=== PATIENT | female | born 1975 | race Caucasian/White ===

== ENCOUNTER → 2016-05-17 | Outpatient (CLI) | payer OTHER, BC ==
--- NOTE | 2016-05-19 16:24 | CR ---
EXAM DATE: 05/17/16 PATIENT'S AGE: 40 Patient: ELGIN KELLY Facility: [place], [place] Site . Site : 1975 Study: XRay Extremity Left [id number] 2:00:30 PM Ordering Physician: Joseph Zamudio Final Report: HISTORY: Fall on 06 May 2016. Findings: Three views of the left elbow demonstrates normal bone mineralization. No joint effusion is seen. There is slight irregularity of the coronoid process of the ulna. No frances fracture line is seen. The radial head is intact. Impression: 1. Slight irregularity of the coronoid process of the ulna. This could represent an minimal impaction fracture although no joint effusion is seen. Recommend correlation with point tenderness. 2. The radial head appears intact. Dictated by Bianca Licea MD @ May 18 2016 2:35PM (Electronic Signature) Report Signed by Proxy and Original Signed Document filed in the Medical Record. MTDD
== END ==
LOC: MW.CHFP 13:30
PROVIDERS: ATTEND Physician Assistant
DX: S59.902A Unspecified injury of left elbow, initial encounter (principal)
CPT/HCPCS: 73080-26-LT; 73080-LT

== ENCOUNTER 2020-12-29 07:53 | Observation (INO) | payer BC ==
[~2020-12-29 07:53] MED LIST: Dexamethasone 4 MG/ML 5 ML MDV ONE; Dexmedetomidine 200 MCG/2 ML SDV ONE; Midazolam 1 MG/ML 2 ML SDV ONE; Propofol 200 MG/20 ML SDV ONE; Rocuronium Bromide 50 MG/5 ML Syringe ONE; Sodium Chloride 0.9% 20 ML ONE; fentaNYL 100 MCG/2 ML SDV ONE
[2020-12-29] MEDS ORDERED: Fluorescein 5 ML Vial ONE (08:14)
[2020-12-29] MEDS ORDERED: Methylene Blue 50 MG/10 ML Ampule ONE (08:14)
[2020-12-29] MEDS ORDERED: Bupivacaine 0.25% 10 ML SDV ONE ×2 (08:14→08:15)
--- NOTE | 2020-12-29 08:15 | PCM.PREANE ---
Preanesthetic Assessment - Procedure Proposed Procedure: Lap assisted Vaginal Hysterectomy, Sky Salpingectomy, Cysto - Anesthesia/Transfusion/Family Hx Anesthesia History: Prior Anesthesia Without Reaction Family History of Anesthesia Reaction: No Transfusion History: No Prior Transfusion(s) - Review of Systems General: No Symptoms Pulmonary: No Symptoms Cardiovascular: No Symptoms Gastrointestinal: No Symptoms Neurological: No Symptoms Other: Reports: None - Physical Assessment NPO Status Date: 12/28/20 NPO Status Time: 19:30 Height: 5 ft 7 in Weight: 62.596 kg ASA Class: 2 Mental Status: Alert & Oriented x3 Airway Class: Mallampati = 3 Dentition: Reports: Normal Dentition Thyro-Mental Finger Breadths: 3 Mouth Opening Finger Breadths: 3 ROM/Head Extension: Full Lungs: Clear to Auscultation, Normal Respiratory Effort Cardiovascular: Regular Rate, Regular Rhythm - Allergies Allergies/Adverse Reactions: Allergies Allergy/AdvReac Type Severity Reaction Status Date / Time No Known Allergies Allergy Verified 12/23/20 08:36 - Acknowledgements Anesthesia Type Planned: General Anesthesia Pt an Appropriate Candidate for the Planned Anesthesia: Yes Alternatives and Risks of Anesthesia Discussed w Pt/Guardian: Yes Pt/Guardian Understands and Agrees with Anesthesia Plan: Yes PreAnesthesia Questionnaire - Past Health History Medical/Surgical History: Denies Medical/Surgical History HEENT History: Reports: Other (See Below) Other HEENT History: wears glasses RISK ASSESSMENT ANALYST History: Reports: , Spontaneous Musculoskeletal History: Reports: Fracture Other Musculoskeletal History: hx fx arm as a child Psychiatric History: Reports: Anxiety Hematologic History: Reports: Anemia - Past Surgical History Head Surgeries/Procedures: Reports: None HEENT Surgical History: Reports: Oral Surgery, Other (See Below) Other HEENT Surgeries/Procedures: wisdom teeth extraction Female Surgical History: Reports: D&C - SUBSTANCE USE Tobacco Use Status *Q: Never Tobacco User Days Per Week of Alcohol Use: 7 Number of Drinks Per Day: 2 Total Drinks Per Week: 14 Recreational Drug Use History: No - HOME MEDS Home Medications: Home Meds Teddy/D3/Mag11/Zinc/Grievance Coordinator/Jacob/Bor [Caltrate 600+D Plus Tablet] 1 tab PO DAILY 12/23/20 [History] Glucosam/Chond/Collagen/Hyalur [Glucosamine Chondroitin] 1 tab PO DAILY 12/23/20 [History] Multivit-Min/Iron/Folic Acid/K [One Daily Women's Multivitamin] 1 tab PO DAILY 12/23/20 [History] Selenium 1 tab PO DAILY 12/23/20 [History] norgestimate-ethinyl estradioL [Estarylla 0.25-0.035 mg Tablet] 1 tab PO DAILY 12/23/20 [History] - CURRENT (IN HOUSE) MEDS Current Meds: Current Medications Lactated Ringer's (Ringers, Lactated) 1,000 mls @ 125 mls/hr IV ASDIRECTED SMA Discontinued Medications Dexamethasone (Dexamethasone 4 Mg/Ml 5 Ml Mdv) Confirm Administered Dose 20 mg .ROUTE .STK-MED ONE Stop: 12/29/20 07:28 Dexmedetomidine HCl (Dexmedetomidine 200 Mcg/2 Ml Sdv) Confirm Administered Dose 200 mcg .ROUTE .STK-MED ONE Stop: 12/29/20 07:28 Fentanyl (Fentanyl 100 Mcg/2 Ml Sdv) Confirm Administered Dose 100 mcg .ROUTE .STK-MED ONE Stop: 12/29/20 07:28 Sodium Chloride (Normal Saline) Confirm Administered Dose 20 mls @ as directed .ROUTE .STK-MED ONE Stop: 12/29/20 07:32 Lidocaine HCl (Lidocaine 1% 5 Ml Sdv) Confirm Administered Dose 5 ml .ROUTE .STK-MED ONE Stop: 12/29/20 07:28 Midazolam HCl (Midazolam 1 Mg/Ml 2 Ml Sdv) Confirm Administered Dose 2 mg .ROUTE .STK-MED ONE Stop: 12/29/20 07:28 Propofol (Propofol 200 Mg/20 Ml Sdv) Confirm Administered Dose 200 mg .ROUTE .STK-MED ONE Stop: 12/29/20 07:28 Rocuronium Johnston (Rocuronium Johnston 50 Mg/5 Ml Syringe) Confirm Administered Dose 50 mg .ROUTE .STK-MED ONE Stop: 12/29/20 07:28
[2020-12-29] MEDS: Lactated Ringers 1,000 ML IV SCH ×2 (08:27→12:18)
[2020-12-29] MEDS ORDERED: Metoclopramide 10 MG/2 ML SDV IVPUSH PRN (09:04)
[2020-12-29] MEDS ORDERED: Ondansetron 4 MG/2 ML SDV IVPUSH PRN ×2 (09:04→10:38)
[2020-12-29] MEDS ORDERED: HYDROmorphone 1 MG/ML Syringe IVPUSH PRN (09:04)
[2020-12-29] MEDS ORDERED: Morphine 2 MG/ML SYRINGE IVPUSH PRN (09:04)
[2020-12-29] MEDS ORDERED: Naloxone 0.4 MG/ML SDV IVPUSH PRN (09:04)
[2020-12-29] MEDS ORDERED: Albuterol 0.083% 2.5 MG/3 ML Neb Soln NEB PRN (09:04)
[2020-12-29 09:05] LABS: CARBON DIOXIDE,CO2 25.2 mmol/L (21.0-32.0); POTASSIUM,K 3.8 mmol/L (3.5-5.1)
[2020-12-29] MEDS ORDERED: Rocuronium Bromide 50 MG/5 ML Syringe ONE (09:58)
[2020-12-29] MEDS ORDERED: ePHEDrine 50 MG/ML SDV ONE (10:03)
[2020-12-29] MEDS ORDERED: Furosemide 40 MG/4 ML VIAL ONE (10:12)
[2020-12-29] MEDS ORDERED: Ketorolac 30 MG/ML SDV ONE (10:17)
[2020-12-29] MEDS ORDERED: Sugammadex Sodium 200 MG/2 ML VIAL ONE (10:17)
[2020-12-29] MEDS ORDERED: Ondansetron 4 MG/2 ML SDV ONE (10:17)
[2020-12-29] MEDS ORDERED: Promethazine 25 MG/ML SDV IM PRN (10:38)
[2020-12-29] MEDS ORDERED: Morphine 4 MG/ML Syringe IVPUSH PRN (10:38)
[2020-12-29] MEDS ORDERED: Ibuprofen 800 MG Tab PO PRN (10:38)
[2020-12-29] MEDS ORDERED: Acetaminophen/oxyCODONE 325-5 MG Tab PO PRN ×2 (10:38)
[2020-12-29] MEDS ORDERED: Ketorolac 30 MG/ML SDV IVPUSH ONE (10:38)
--- NOTE | 2020-12-29 10:45 | PCM.OPNOTE ---
- General Post-Op/Procedure Note Date of Surgery/Procedure: 12/29/20 Operative Procedure(s): Laparoscopic-assisted vaginal hysterectomy, bilateral salpingectomy, cystoscopy Findings: Enlarged uterus, 10-week size, sound to 10cm, with multiple intramural fibroids Normal-appearing ovaries and fallopian tubes Endometriosis in posterior cul-de-sac Normal ureters, bilateral ureteral efflux Pre Op Diagnosis: 45yo with heavy menstrual bleeding. Uterine leiomyoma Post-Op Diagnosis: 45yo with heavy menstrual bleeding. Uterine leiomyoma. Endometriosis Anesthesia Technique: General ET Tube Primary Surgeon: Sveta Burns Electronic Masking System Operator: Chen Neff Pathology: Uterus, cervix, bilateral fallopian tubes Fluid Replacement, Intraop: 600 Output, Urine Amount: 100 EBL in mLs: 100 Complications: None Condition: Good Free Text/Narrative:: 2g Ancef IV given for antibiotic prophylaxis
--- NOTE | 2020-12-29 10:48 | PCM.POSTAN ---
POST ANESTHESIA ASSESSMENT - MENTAL STATUS Mental Status: Alert, Oriented - VITAL SIGNS Vital Signs: Last Vital Signs Temp 98.2 F 12/29/20 10:42 Pulse 67 12/29/20 10:42 Resp 23 H 12/29/20 10:42 BP 97/57 L 12/29/20 10:42 Pulse Ox 100 12/29/20 10:42 - RESPIRATORY Respiratory Status: Respiratory Rate WNL, Airway Patent, O2 Saturation Stable - CARDIOVASCULAR CV Status: Pulse Rate WNL, Blood Pressure Stable - GASTROINTESTINAL GI Status: No Symptoms - PAIN Pain Score: 6 - POST OP HYDRATION Hydration Status: Adequate & Stable
[2020-12-29] MEDS: fentaNYL 100 MCG/2 ML SDV IVPUSH PRN ×2 (11:02→11:09)
--- NOTE | 2020-12-29 11:25 | PCM48HPAN ---
Post Anesthesia Note - EVALUATION WITHIN 48HRS OF ANESTHETIC Vital Signs in Normal Range: Yes Patient Participated in Evaluation: Yes Respiratory Function Stable: Yes Airway Patent: Yes Cardiovascular Function Stable: Yes Hydration Status Stable: Yes Pain Control Satisfactory: Yes Nausea and Vomiting Control Satisfactory: Yes Mental Status Recovered: Yes Vital Signs: Last Vital Signs Temp 98.2 F 12/29/20 10:42 Pulse 70 12/29/20 11:19 Resp 12 12/29/20 11:19 BP 100/56 L 12/29/20 11:19 Pulse Ox 100 12/29/20 11:19 - COMMENTS/OBSERVATIONS Free Text/Narrative:: Pt doing well post-op. VSS. No apparent anesthetic complications. Dr. Miguelangel Colon
--- NOTE | 2020-12-29 12:30 | OR ---
SURGEON: Sveta Burns MD DATE OF PROCEDURE: 12/29/2020 PREOPERATIVE DIAGNOSES: 1. Heavy menstrual bleeding. 2. Uterine leiomyoma. POSTOPERATIVE DIAGNOSES: 1. Heavy menstrual bleeding. 2. Uterine leiomyoma. 3. Endometriosis. PROCEDURES: 1. Laparoscopic-assisted vaginal hysterectomy. 2. Bilateral salpingectomy. 3. Cystoscopy. PRIMARY SURGEON: Sveta Burns MD BILINGUAL SALES ASSISTANT: Chen Neff M.D. ANESTHESIA: General endotracheal. COMPLICATIONS: None. ESTIMATED BLOOD LOSS: 100 mL. FLUIDS: 600 mL LR. URINE OUTPUT: 100 mL. SPECIMEN: Uterus, cervix, and bilateral fallopian tubes. ANTIBIOTIC PROPHYLAXIS: 2 g Ancef. FINDINGS: Exam under anesthesia revealed a 10-week size anteverted uterus. Operative findings showed an enlarged uterus with multiple leiomyoma. The ovaries and fallopian tubes appeared normal. Endometriosis was noted in the posterior cul-de-sac. DESCRIPTION OF PROCEDURE: The patient was taken to the operating room where general anesthesia was obtained without difficulty. She was placed in dorsal lithotomy position with legs in Yellofin stirrups. The patient was prepared and draped, and a Anthony catheter was inserted. A Graves speculum was inserted into the vagina. The anterior lip of the cervix was grasped with a single-tooth tenaculum. A HUMI uterine manipulator was introduced. The tenaculum and speculum were removed. Surgeon's gloves were changed. The infraumbilical fold was infiltrated with local anesthetic. A small vertical skin incision was made in the umbilical fold. A 5 mm trocar was inserted into the abdomen under direct laparoscopic visualization. Pneumoperitoneum was established with carbon dioxide gas to a pressure of 15 mmHg. Pelvic anatomy was noted as above. Two 5 mm trocars were inserted in the bilateral lower quadrant under direct visualization. The Trendelenburg position was obtained to facilitate moving bowel and omentum out of the pelvis. The uterus was elevated from the pelvis with uterine manipulator. Endometriosis was noted in the posterior cul-de-sac. The bilateral ureters were noted to be peristalsing. The left fallopian tube was retracted anteriorly using an atraumatic grasper. The mesosalpinx was clamped, coagulated, and transected with the 5 mm LigaSure device. The round ligaments were sequentially transected with the LigaSure device until the uterine artery was exposed. The uterine artery was clamped, coagulated, and transected with the LigaSure device. The bladder flap was created using LigaSure device. The procedure was repeated on the patient's right side. Laparoscopic resections were completed at this point. The pneumoperitoneum was released. The patient was repositioned in the dorsal lithotomy position with hips flexed. Uterine manipulator was removed. The cervix was grasped with a Emiliana tenaculum. A circumferential incision around the cervix was made with the Bovie. Blunt and sharp dissection was performed along the appropriate plane. The posterior cul-de-sac was entered sharply with Robertson scissors, and bloody peritoneal fluid was noted. Anterior cul-de-sac was then entered with no difficulty using Metzenbaum scissors. The uterosacral ligaments were clamped, transected, and suture ligated. The remaining cardinal ligament was then clamped, transected, and suture ligated. The uterus and tubes were delivered intact through the vagina and sent to Pathology. The vaginal angles were transfixed to the uterosacral ligaments. The vaginal cuff was closed with a vertical running lock stitch of 0 Vicryl suture. The 70-degree cystoscope was introduced through the urethra into the bladder. The ureteral orifices were noted bilaterally to efflux fluorescein-stained urine. Systematic inspection of bladder was completed, and there were no obvious lesions. Surgeon's gloves were changed. Pneumoperitoneum was re-established, and the pelvis was thoroughly inspected with no active bleeding noted. All instruments were removed from the abdomen. All instrument and sponge counts were correct x2. The patient was taken to the recovery room in stable condition. [id number] / MODL /[id number] MTDJavier
[2020-12-29] MEDS ORDERED: Ketorolac 30 MG/ML SDV IVPUSH PRN (16:30)
--- NOTE | 2020-12-29 17:13 | PCM.SN.2 ---
- Free Text/Narrative Note: Patient is doing well, sitting up in bed. Pain controlled with IV pain medication at this time. Tolerating crackers and water without nausea. Has not attempted ambulation yet. Bertrand catheter in place. Plan to ambulate in room this evening, remove bertrand in morning. All questions answered. Time Documentation
--- NOTE | 2020-12-30 07:19 | PCM.PN ---
- General Info Date of Service: 12/30/20 Subjective Update: No concerns this morning. Is ambulating in the menjivar without dizziness or pain. Functional Status: Reports: Pain Controlled, Tolerating Diet, Ambulating, Urinating - Review of Systems General: Reports: No Symptoms HEENT: Reports: No Symptoms Pulmonary: Reports: No Symptoms Cardiovascular: Reports: No Symptoms Gastrointestinal: Reports: No Symptoms Genitourinary: Reports: No Symptoms Musculoskeletal: Reports: No Symptoms Skin: Reports: No Symptoms Neurological: Reports: No Symptoms Psychiatric: Reports: No Symptoms - Patient Data Vitals - Most Recent: Last Vital Signs Temp 36.8 C 12/30/20 04:30 Pulse 81 12/30/20 04:30 Resp 14 12/30/20 04:30 BP 99/53 L 12/30/20 04:30 Pulse Ox 100 12/30/20 04:30 Weight - Most Recent: 62.596 kg I&O - Last 24 Hours: Intake & Output 12/29/20 12/30/20 12/30/20 22:59 06:59 14:59 Intake Total 800 Output Total 700 2175 Balance 100 -2175 Lab Results Last 24 Hours: Laboratory Results - last 24 hr 12/29/20 12/29/20 12/29/20 Range/Units 08:19 08:19 08:19 WBC 7.30 (4.0-11.0) K/uL RBC 4.26 L (4.30-5.90) M/uL Hgb 12.7 (12.0-16.0) g/dL Hct 37.6 (36.0-46.0) % MCV 88.3 (80.0-98.0) fL MCH 29.8 (27.0-32.0) pg MCHC 33.8 (31.0-37.0) g/dL RDW Std Deviation 42.1 (28.0-62.0) fl RDW Coeff of Adam 13 (11.0-15.0) % Plt Count 206 (150-400) K/uL MPV 9.90 (7.40-12.00) fL Neut % (Auto) 73.5 (48.0-80.0) % Lymph % (Auto) 19.3 (16.0-40.0) % [place] % (Auto) 5.5 (0.0-15.0) % Eos % (Auto) 1.2 (0.0-7.0) % Baso % (Auto) 0.5 (0.0-1.5) % Neut # (Auto) 5.4 (1.4-5.7) K/uL Lymph # (Auto) 1.4 (0.6-2.4) K/uL [place] # (Auto) 0.4 (0.0-0.8) K/uL Eos # (Auto) 0.1 (0.0-0.7) K/uL Baso # (Auto) 0.0 (0.0-0.1) K/uL Nucleated RBC % 0.0 /100WBC Nucleated RBCs # 0 K/uL Sodium 139 (136-145) mmol/L Potassium 3.8 (3.5-5.1) mmol/L Chloride 104 (98-107) mmol/L Carbon Dioxide 25.2 (21.0-32.0) mmol/L BUN 15 (7.0-18.0) mg/dL Creatinine 1.1 H (0.6-1.0) mg/dL Est Cr Clr Drug Dosing 62.14 mL/min Estimated GFR (MDRD) 53.5 ml/min Glucose 101 (74-106) mg/dL Calcium 8.6 (8.5-10.1) mg/dL HCG, Qual NEGATIVE (NEG) Blood Type Antibody Screen 12/29/20 12/30/20 Range/Units 08:19 06:37 WBC 13.62 H (4.0-11.0) K/uL RBC 3.82 L (4.30-5.90) M/uL Hgb 11.5 L (12.0-16.0) g/dL Hct 33.8 L (36.0-46.0) % MCV 88.5 (80.0-98.0) fL MCH 30.1 (27.0-32.0) pg MCHC 34.0 (31.0-37.0) g/dL RDW Std Deviation 42.3 (28.0-62.0) fl RDW Coeff of Adam 13 (11.0-15.0) % Plt Count 190 (150-400) K/uL MPV 9.60 (7.40-12.00) fL Neut % (Auto) 81.7 H (48.0-80.0) % Lymph % (Auto) 11.8 L (16.0-40.0) % [place] % (Auto) 6.2 (0.0-15.0) % Eos % (Auto) 0.2 (0.0-7.0) % Baso % (Auto) 0.1 (0.0-1.5) % Neut # (Auto) 11.1 H (1.4-5.7) K/uL Lymph # (Auto) 1.6 (0.6-2.4) K/uL [place] # (Auto) 0.9 H (0.0-0.8) K/uL Eos # (Auto) 0.0 (0.0-0.7) K/uL Baso # (Auto) 0.0 (0.0-0.1) K/uL Nucleated RBC % 0.0 /100WBC Nucleated RBCs # 0 K/uL Sodium (136-145) mmol/L Potassium (3.5-5.1) mmol/L Chloride (98-107) mmol/L Carbon Dioxide (21.0-32.0) mmol/L BUN (7.0-18.0) mg/dL Creatinine (0.6-1.0) mg/dL Est Cr Clr Drug Dosing mL/min Estimated GFR (MDRD) ml/min Glucose (74-106) mg/dL Calcium (8.5-10.1) mg/dL HCG, Qual (NEG) Blood Type A POSITIVE Antibody Screen NEGATIVE Med Orders - Current: Current Medications Lactated Ringer's (Ringers, Lactated) 1,000 mls @ 125 mls/hr IV ASDIRECTED [facility] Last Admin: 12/29/20 12:18 Dose: 125 mls/hr Documented by: Ibuprofen (Ibuprofen 800 Mg Tab) 800 mg PO Q8H PRN PRN Reason: Pain (mild 1-3) Ketorolac Tromethamine (Ketorolac 30 Mg/Ml Sdv) 30 mg IVPUSH Q6H PRN PRN Reason: Pain (severe 7-10) Stop: 01/03/21 16:31 Last Admin: 12/29/20 21:06 Dose: 30 mg Documented by: Morphine Sulfate (Morphine 4 Mg/Ml Syringe) 4 mg IVPUSH Q2H PRN PRN Reason: Pain (severe 7-10) Last Admin: 12/29/20 14:14 Dose: 4 mg Documented by: Ondansetron HCl (Ondansetron 4 Mg/2 Ml Sdv) 4 mg IVPUSH Q6H PRN PRN Reason: Nausea/Vomiting Oxycodone/Acetaminophen (Acetaminophen/Oxycodone 325-5 Mg Tab) 1 tab PO Q4H PRN PRN Reason: Pain (moderate 4-6) Oxycodone/Acetaminophen (Acetaminophen/Oxycodone 325-5 Mg Tab) 2 tab PO Q4H PRN PRN Reason: Pain (moderate 4-6) Promethazine HCl (Promethazine 25 Mg/Ml Sdv) 25 mg IM Q6H PRN PRN Reason: Nausea/Vomiting Discontinued Medications Albuterol (Albuterol 0.083% 2.5 Mg/3 Ml Neb Soln) 2.5 mg NEB ONETIME PRN PRN Reason: Wheezing Bupivacaine HCl (Bupivacaine 0.25% 10 Ml Sdv) Confirm Administered Dose 10 ml .ROUTE .STK-MED ONE Stop: 12/29/20 08:15 Bupivacaine HCl (Bupivacaine 0.25% 10 Ml Sdv) Confirm Administered Dose 10 ml .ROUTE .STK-MED ONE Stop: 12/29/20 08:16 Dexamethasone (Dexamethasone 4 Mg/Ml 5 Ml Mdv) Confirm Administered Dose 20 mg .ROUTE .STK-MED ONE Stop: 12/29/20 07:28 Dexmedetomidine HCl (Dexmedetomidine 200 Mcg/2 Ml Sdv) Confirm Administered Dose 200 mcg .ROUTE .STK-MED ONE Stop: 12/29/20 07:28 Droperidol (Droperidol 5 Mg/2 Ml Sdv) 0.625 mg IVPUSH ONETIME PRN PRN Reason: Nausea/Vomiting Ephedrine Sulfate (Ephedrine 50 Mg/Ml Sdv) Confirm Administered Dose 50 mg .RO MARYBETH .STK-MED ONE Stop: 12/29/20 10:04 Fentanyl (Fentanyl 100 Mcg/2 Ml Sdv) Confirm Administered Dose 100 mcg .ROUTE .STK-MED ONE Stop: 12/29/20 07:28 Fentanyl (Fentanyl 100 Mcg/2 Ml Sdv) 50 mcg IVPUSH Q5M PRN PRN Reason: Pain (mild 1-3) Last Admin: 12/29/20 11:09 Dose: 50 mcg Documented by: Fluorescein Sodium (Fluorescein 5 Ml Vial) Confirm Administered Dose 5 ml .ROUTE .STK-MED ONE Stop: 12/29/20 08:15 Furosemide (Furosemide 40 Mg/4 Ml Vial) Confirm Administered Dose 40 mg .ROUTE .STK-MED ONE Stop: 12/29/20 10:13 Hydromorphone HCl (Hydromorphone 1 Mg/Ml Syringe) 1 mg IVPUSH Q10M PRN PRN Reason: Pain (moderate 4-6) Last Admin: 12/29/20 10:51 Dose: 1 mg Documented by: Sodium Chloride (Normal Saline) Confirm Administered Dose 20 mls @ as directed .ROUTE .STK-MED ONE Stop: 12/29/20 07:32 Acetaminophen (Ofirmev 1000 Mg/100 Ml) Confirm Administered Dose 100 mls @ as directed .ROUTE .STK-MED ONE Stop: 12/29/20 10:18 Ketorolac Tromethamine (Ketorolac 30 Mg/Ml Sdv) Confirm Administered Dose 30 mg .ROUTE .STK-MED ONE Stop: 12/29/20 10:18 Lidocaine HCl (Lidocaine 1% 5 Ml Sdv) Confirm Administered Dose 5 ml .ROUTE .STK-MED ONE Stop: 12/29/20 07:28 Methylene Blue (Methylene Blue 50 Mg/10 Ml Ampule) Confirm Administered Dose 50 mg .ROUTE .STK-MED ONE Stop: 12/29/20 08:15 Metoclopramide HCl (Metoclopramide 10 Mg/2 Ml Sdv) 10 mg IVPUSH ONETIME PRN PRN Reason: Nausea/Vomiting Midazolam HCl (Midazolam 1 Mg/Ml 2 Ml Sdv) Confirm Administered Dose 2 mg .ROUTE .STK-MED ONE Stop: 12/29/20 07:28 Morphine Sulfate (Morphine 2 Mg/Ml Syringe) 2 mg IVPUSH Q10M PRN PRN Reason: Pain (severe 7-10) Naloxone HCl (Naloxone 0.4 Mg/Ml Sdv) 0.1 mg IVPUSH ASDIRECTED PRN PRN Reason: Respiratory Depression Ondansetron HCl (Ondansetron 4 Mg/2 Ml Sdv) 4 mg IVPUSH ONETIME PRN PRN Reason: Nausea/Vomiting Ondansetron HCl (Ondansetron 4 Mg/2 Ml Sdv) Confirm Administered Dose 4 mg .RO MARYBETH .STK-MED ONE Stop: 12/29/20 10:18 Propofol (Propofol 200 Mg/20 Ml Sdv) Confirm Administered Dose 200 mg .ROUTE .STK-MED ONE Stop: 12/29/20 07:28 Rocuronium Trezevant (Rocuronium Trezevant 50 Mg/5 Ml Syringe) Confirm Administered Dose 50 mg .ROUTE .STK-MED ONE Stop: 12/29/20 07:28 Rocuronium Trezevant (Rocuronium Trezevant 50 Mg/5 Ml Syringe) Confirm Administered Dose 50 mg .ROUTE .STK-MED ONE Stop: 12/29/20 09:59 Sugammadex Sodium (Sugammadex Sodium 200 Mg/2 Ml Vial) Confirm Administered Dose 200 mg .ROUTE .STK-MED ONE Stop: 12/29/20 10:18 - Exam Urinary Catheter Total Time: 0Days 20Hours General: Alert, Oriented Neck: Supple Lungs: Normal Respiratory Effort GI/Abdominal Exam: Soft, Non-Tender, No Distention Extremities: Non-Tender, No Pedal Edema Skin: Warm, Dry, Intact Wound/Incisions: Dressing Dry and Intact Neurological: No New Focal Deficit Psy/Mental Status: Alert, Normal Affect, Normal Mood - Patient Data Lab Results Last 24 hrs: Laboratory Results - last 24 hr 12/29/20 12/29/20 12/29/20 Range/Units 08:19 08:19 08:19 WBC 7.30 (4.0-11.0) K/uL RBC 4.26 L (4.30-5.90) M/uL Hgb 12.7 (12.0-16.0) g/dL Hct 37.6 (36.0-46.0) % MCV 88.3 (80.0-98.0) fL MCH 29.8 (27.0-32.0) pg MCHC 33.8 (31.0-37.0) g/dL RDW Std Deviation 42.1 (28.0-62.0) fl RDW Coeff of Adam 13 (11.0-15.0) % Plt Count 206 (150-400) K/uL MPV 9.90 (7.40-12.00) fL Neut % (Auto) 73.5 (48.0-80.0) % Lymph % (Auto) 19.3 (16.0-40.0) % [place] % (Auto) 5.5 (0.0-15.0) % Eos % (Auto) 1.2 (0.0-7.0) % Baso % (Auto) 0.5 (0.0-1.5) % Neut # (Auto) 5.4 (1.4-5.7) K/uL Lymph # (Auto) 1.4 (0.6-2.4) K/uL [place] # (Auto) 0.4 (0.0-0.8) K/uL Eos # (Auto) 0.1 (0.0-0.7) K/uL Baso # (Auto) 0.0 (0.0-0.1) K/uL Nucleated RBC % 0.0 /100WBC Nucleated RBCs # 0 K/uL Sodium 139 (136-145) mmol/L Potassium 3.8 (3.5-5.1) mmol/L Chloride 104 (98-107) mmol/L Carbon Dioxide 25.2 (21.0-32.0) mmol/L BUN 15 (7.0-18.0) mg/dL Creatinine 1.1 H (0.6-1.0) mg/dL Est Cr Clr Drug Dosing 62.14 mL/min Estimated GFR (MDRD) 53.5 ml/min Glucose 101 (74-106) mg/dL Calcium 8.6 (8.5-10.1) mg/dL HCG, Qual NEGATIVE (NEG) Blood Type Antibody Screen 12/29/20 12/30/20 Range/Units 08:19 06:37 WBC 13.62 H (4.0-11.0) K/uL RBC 3.82 L (4.30-5.90) M/uL Hgb 11.5 L (12.0-16.0) g/dL Hct 33.8 L (36.0-46.0) % MCV 88.5 (80.0-98.0) fL MCH 30.1 (27.0-32.0) pg MCHC 34.0 (31.0-37.0) g/dL RDW Std Deviation 42.3 (28.0-62.0) fl RDW Coeff of Adam 13 (11.0-15.0) % Plt Count 190 (150-400) K/uL MPV 9.60 (7.40-12.00) fL Neut % (Auto) 81.7 H (48.0-80.0) % Lymph % (Auto) 11.8 L (16.0-40.0) % [place] % (Auto) 6.2 (0.0-15.0) % Eos % (Auto) 0.2 (0.0-7.0) % Baso % (Auto) 0.1 (0.0-1.5) % Neut # (Auto) 11.1 H (1.4-5.7) K/uL Lymph # (Auto) 1.6 (0.6-2.4) K/uL [place] # (Auto) 0.9 H (0.0-0.8) K/uL Eos # (Auto) 0.0 (0.0-0.7) K/uL Baso # (Auto) 0.0 (0.0-0.1) K/uL Nucleated RBC % 0.0 /100WBC Nucleated RBCs # 0 K/uL Sodium (136-145) mmol/L Potassium (3.5-5.1) mmol/L Chloride (98-107) mmol/L Carbon Dioxide (21.0-32.0) mmol/L BUN (7.0-18.0) mg/dL Creatinine (0.6-1.0) mg/dL Est Cr Clr Drug Dosing mL/min Estimated GFR (MDRD) ml/min Glucose (74-106) mg/dL Calcium (8.5-10.1) mg/dL HCG, Qual (NEG) Blood Type A POSITIVE Antibody Screen NEGATIVE Result Diagrams: 12/30/20 06:37 12/29/20 08:19 Sepsis Event Note - Evaluation Sepsis Screening Result: No Definite Risk - Focused Exam Vital Signs: Vital Signs Temp Temp Pulse Resp BP Pulse Ox 12/30/20 04:30 36.8 C 81 14 99/53 L 100 12/30/20 03:30 36.9 C 82 16 91/54 L 97 12/30/20 00:00 37.6 C 88 16 105/64 100 12/29/20 19:29 37.4 C 92 18 116/72 100 - Problem List & Annotations (1) S/P laparoscopic assisted vaginal hysterectomy (LAVH) SNOMED Code(s): 724883330, 11473649, 762281120 Code(s): Z90.710 - ACQUIRED ABSENCE OF BOTH CERVIX AND UTERUS Status: Acute Current Visit: Yes - Problem List Review Problem List Initiated/Reviewed/Updated: Yes - My Orders Last 24 Hours: My Active Orders 12/29/20 06:30 Lactated Ringers [Ringers, Lactated] 1,000 ml IV ASDIRECTED 12/29/20 10:38 Patient Status [ADT] Routine May Shower [RC] ASDIRECTED Notify Provider Intake and Out [RC] ASDIRECTED Notify Provider Vital Signs [RC] ASDIRECTED RT Incentive Spirometry [RC] Q2HWA Up With Assistance [RC] PER UNIT ROUTINE Up ad Catrina [RC] PER UNIT ROUTINE Urinary Catheter Removal [RC] Per Unit Routine Vital Signs [RC] Q4H Acetaminophen/oxyCODONE [Percocet 325-5 MG] 1 tab PO Q4H PRN Acetaminophen/oxyCODONE [Percocet 325-5 MG] 2 tab PO Q4H PRN Morphine 4 mg IVPUSH Q2H PRN Ondansetron [Zofran] 4 mg IVPUSH Q6H PRN Promethazine [Phenergan] 25 mg IM Q6H PRN Peripheral IV Discontinue [OM.PC] Routine Sequential Compression Device [OM.PC] Per Unit Routine Resuscitation Status Routine 12/29/20 10:39 Antiembolic Devices [RC] PER UNIT ROUTINE Intake and Output [RC] PER UNIT ROUTINE Abdominal Binder [OM.PC] Per Unit Routine 12/29/20 Lunch Regular Diet [DIET] 12/29/20 16:30 Ketorolac [Toradol] 30 mg IVPUSH Q6H PRN 12/30/20 06:37 BASIC METABOLIC PANEL,BMP [CHEM] AM 12/30/20 07:17 Ready for Discharge [RC] PER UNIT ROUTINE 12/30/20 20:30 Ibuprofen [Motrin] 800 mg PO Q8H PRN - Assessment Assessment:: 45yo s/p LAVH, BS, cysto, POD#1 - Plan Plan:: Plan discharge home today, meeting all post-operative milestones. Reviewed discharge instructions/precautions. All questions answered. Follow-up in clinic in 2 weeks, sooner if issues arise.
[2020-12-30 07:21] LABS: CARBON DIOXIDE,CO2 24.7 mmol/L (21.0-32.0); POTASSIUM,K 4.2 mmol/L (3.5-5.1)
[2020-12-30] MEDS ORDERED: Ibuprofen 800 MG Tab ONE (07:48)
[2020-12-30] MEDS ORDERED: Ibuprofen 800 MG Tab PO PRN (20:30)
== END 2020-12-30 11:18 | disposition home or self-care (01) ==
LOC: MW.SDS 07:53 → MW.OB 15:21
PROVIDERS: ADMIT Obstetrics & Gynecology; ATTEND Obstetrics & Gynecology
DX: D25.1 Intramural leiomyoma of uterus (principal); D25.0 Submucous leiomyoma of uterus; N80.9 Endometriosis, unspecified; K66.0 Peritoneal adhesions (postprocedural) (postinfection); Z79.899 Other long term (current) drug therapy; Z98.890 Other specified postprocedural states
CPT/HCPCS: 36415; 58552; 80048; 84703; 85025; 86850; 86900; 86901; A9270; J0131; J1100; J1170; J1885; J1940; J2250; J2270; J2704; J3010; J3490; J7030; J7120; 00944; J2405

== ENCOUNTER 2021-02-26 11:09 | Day surgery (SDC) | payer BC ==
--- NOTE | 2021-02-26 10:29 | PCM.PREANE ---
Preanesthetic Assessment - Anesthesia/Transfusion/Family Hx Anesthesia History: Prior Anesthesia Without Reaction Transfusion History: No Prior Transfusion(s) - Review of Systems General: No Symptoms Pulmonary: No Symptoms Cardiovascular: No Symptoms Gastrointestinal: Abdominal Pain Neurological: No Symptoms Other: Reports: None - Physical Assessment NPO Status Date: 02/26/21 NPO Status Time: 00:00 Height: 5 ft 7.5 in Weight: 134 lb ASA Class: 2 Mental Status: Alert & Oriented x3 Airway Class: Mallampati = 2 Dentition: Reports: Normal Dentition Thyro-Mental Finger Breadths: 3 Mouth Opening Finger Breadths: 3 ROM/Head Extension: Full Lungs: Clear to Auscultation, Normal Respiratory Effort Cardiovascular: Regular Rate, Regular Rhythm - Allergies Allergies/Adverse Reactions: Allergies Allergy/AdvReac Type Severity Reaction Status Date / Time No Known Allergies Allergy Verified 02/20/21 10:12 - Acknowledgements Anesthesia Type Planned: General Anesthesia Pt an Appropriate Candidate for the Planned Anesthesia: Yes Alternatives and Risks of Anesthesia Discussed w Pt/Guardian: Yes Pt/Guardian Understands and Agrees with Anesthesia Plan: Yes PreAnesthesia Questionnaire - Past Health History Medical/Surgical History: Denies Medical/Surgical History HEENT History: Reports: Other (See Below) Other HEENT History: wears glasses Cardiovascular History: Reports: None Respiratory History: Reports: None Gastrointestinal History: Reports: Other (See Below) Other Gastrointestinal History: current abdominal pain, bloating and constipation Genitourinary History: Reports: None 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: Musculoskeletal History: Reports: Fracture Other Musculoskeletal History: hx of fx arm Neurological History: Reports: Other (See Below) Other Neuro History: motion sickness in the past Psychiatric History: Reports: Anxiety Endocrine/Metabolic History: Reports: None Hematologic History: Reports: None Immunologic History: Reports: None Oncologic (Cancer) History: Reports: None Dermatologic History: Reports: None - Infectious Disease History Infectious Disease History: Reports: Chicken Pox - Past Surgical History Head Surgeries/Procedures: Reports: None Female Surgical History: Reports: Hysterectomy Other Female Surgeries/Procedures: LAVH - SUBSTANCE USE Tobacco Use Status *Q: Never Tobacco User Days Per Week of Alcohol Use: 7 Number of Drinks Per Day: 2 Total Drinks Per Week: 14 Recreational Drug Use History: No - HOME MEDS Home Medications: Home Meds Teddy/D3/Mag11/Zinc/Vinyl Installer/Jacob/Bor [Caltrate 600+D Plus Tablet] 1 tab PO DAILY 12/23/20 [History] Glucosam/Chond/Collagen/Hyalur [Glucosamine Chondroitin] 1 tab PO DAILY 12/23/20 [History] Multivit-Min/Iron/Folic Acid/K [One Daily Women's Multivitamin] 1 tab PO DAILY 12/23/20 [History] Selenium 1 tab PO DAILY 12/23/20 [History] valACYclovir [Valtrex] 1 gm PO DAILY PRN 02/20/21 [History] - CURRENT (IN HOUSE) MEDS Current Meds: Current Medications Lactated Ringer's (Ringers, Lactated) 1,000 mls @ 125 mls/hr IV ASDIRECTED SAM Sodium Chloride (Sodium Chloride 0.9% 10 Ml Syringe) 10 ml FLUSH ASDIRECTED PRN PRN Reason: Keep Vein Open Sodium Chloride (Sodium Chloride 0.9% 2.5 Ml Syringe) 2.5 ml FLUSH ASDIRECTED PRN PRN Reason: Keep Vein Open Sodium Chloride (Sodium Chloride 0.9% 10 Ml Syringe) 10 ml FLUSH ASDIRECTED PRN PRN Reason: Keep Vein Open Sodium Chloride (Sodium Chloride 0.9% 2.5 Ml Syringe) 2.5 ml FLUSH ASDIRECTED PRN PRN Reason: Keep Vein Open Sodium Chloride (Sodium Chloride 0.9% 20 Ml Sdv) 10 ml IV ASDIRECTED PRN PRN Reason: IV Use
[~2021-02-26 11:09] MED LIST changes: -Dexamethasone 4 MG/ML 5 ML MDV ONE; -Dexmedetomidine 200 MCG/2 ML SDV ONE; +Lactated Ringers 1,000 ML IV SCH; -Midazolam 1 MG/ML 2 ML SDV ONE; -Propofol 200 MG/20 ML SDV ONE; -Rocuronium Bromide 50 MG/5 ML Syringe ONE; +Sodium Chloride 0.9% 10 ML Syringe FLUSH PRN; +Sodium Chloride 0.9% 2.5 ML Syringe FLUSH PRN; -Sodium Chloride 0.9% 20 ML ONE; +Sodium Chloride 0.9% 20 ML SDV IV PRN; -fentaNYL 100 MCG/2 ML SDV ONE
[2021-02-26] MEDS ORDERED: propofoL 50 ML ONE (11:10)
[2021-02-26] MEDS ORDERED: fentaNYL 100 MCG/2 ML SDV ONE (14:27)
--- NOTE | 2021-02-26 16:02 | PCM.POSTAN ---
POST ANESTHESIA ASSESSMENT - MENTAL STATUS Mental Status: Alert, Oriented - VITAL SIGNS Vital Signs: Last Vital Signs Temp 36.3 C 02/26/21 15:57 Pulse 77 02/26/21 15:57 Resp 10 L 02/26/21 15:57 BP 85/49 L 02/26/21 15:57 Pulse Ox 98 02/26/21 15:57 - RESPIRATORY Respiratory Status: Respiratory Rate WNL, Airway Patent, O2 Saturation Stable - CARDIOVASCULAR CV Status: Pulse Rate WNL, Blood Pressure Stable - GASTROINTESTINAL GI Status: No Symptoms - POST OP HYDRATION Hydration Status: Adequate & Stable
--- NOTE | 2021-02-26 16:02 | PCM48HPAN ---
Post Anesthesia Note - EVALUATION WITHIN 48HRS OF ANESTHETIC Vital Signs in Normal Range: Yes Patient Participated in Evaluation: Yes Respiratory Function Stable: Yes Airway Patent: Yes Cardiovascular Function Stable: Yes Hydration Status Stable: Yes Pain Control Satisfactory: Yes Nausea and Vomiting Control Satisfactory: Yes Mental Status Recovered: Yes Vital Signs: Last Vital Signs Temp 36.3 C 02/26/21 15:57 Pulse 77 02/26/21 15:57 Resp 10 L 02/26/21 15:57 BP 85/49 L 02/26/21 15:57 Pulse Ox 98 02/26/21 15:57
--- NOTE | 2021-02-26 16:21 | PCM.OPNOTE ---
- General Post-Op/Procedure Note Date of Surgery/Procedure: 02/26/21 Operative Procedure(s): Diagnostic EGD and colonoscopy Findings: Redundant colon, esophagitis Pre Op Diagnosis: Chronic epigastric pain, constipation Post-Op Diagnosis: Consitpation, esophagitis Anesthesia Technique: MAC Primary Surgeon: Sveta Vanessa Condition: Good Free Text/Narrative:: Intake & Output 02/26/21 02/26/21 02/26/21 06:59 14:59 22:59 Intake Total 1400 Balance 1400
--- NOTE | 2021-02-27 12:34 | OR ---
SURGEON: SVETA VANESSA MD DATE OF PROCEDURE: 02/26/2021 PREOPERATIVE DIAGNOSES: Chronic epigastric pain, change in bowel habits. POSTOPERATIVE DIAGNOSIS: Esophagitis. PROCEDURE PERFORMED: Diagnostic esophagogastroduodenoscopy and colonoscopy. PRIMARY SURGEON: Endoscopist: Sveta Vanessa MD ANESTHESIA: General mask. INSTRUMENT USED: Olympus endoscope and colonoscope. EXTENT OF EXAMINATION: To the second portion of duodenum, to the cecum. PREPARATION: Good. LIMITATIONS: None. INDICATIONS FOR EXAMINATION: The patient is a 45-year-old female who presents with chronic epigastric pain, bloating, and worsening constipation. The decision was made to proceed with diagnostic esophagogastroduodenoscopy and colonoscopy. I explained the procedure, expected perioperative course, the risks. She verbalized understanding and wishes to proceed. PROCEDURE IN DETAIL: The patient was brought to the endoscopy suite and placed in a left lateral decubitus position. A time-out was completed verifying the patient's name, age, date of , allergies, and procedure to be performed. Anesthesia was induced and continuous oxygen was provided via nasal cannula throughout the procedure. After adequate sedation was achieved, a well-lubricated endoscope was placed in the patient's mouth and advanced under direct visualization to the second portion of duodenum. This appeared normal and a photograph was taken. Scope was then fully withdrawn while examining the color, texture, anatomy, and integrity of the mucosa of the upper GI tract. The duodenum appeared normal. A biopsy was taken within the duodenal bulb and sent to pathology for histologic review. Scope was brought into the stomach and a photograph was taken of a normal-appearing pylorus and GE junction. Biopsies were taken of the gastric antrum, body, and fundus and sent for histologic review and H pylori testing. The gastric mucosa overall appeared normal. The scope was brought into the distal esophagus. The Z-line appeared slightly irregular and there was an area above the Z-line that appeared inflamed consistent with esophagitis. A photograph of this was taken. A biopsy was taken 1 cm above the Z-line and sent to pathology for histologic review. The remainder of the esophagus was normal. Scope was removed and this portion of procedure terminated. A digital rectal exam was performed. This exam was within normal limits. A well-lubricated colonoscope was inserted into the rectum and advanced under direct visualization. The patient had a very dilated and redundant colon. This made it very difficult to reach the cecum. Multiple position changes were performed and multiple techniques were used, but unfortunately, I could only make my way to the mid ascending colon. I could see within the cecal cap, but could not reach it. After multiple attempts, I was unsuccessful in reaching the cecum. A photograph of this area, however, was taken. The scope was then fully withdrawn while examining the color, texture, anatomy, and integrity of the mucosa from the mid ascending colon to the anal canal. Her mucosa overall appeared normal. There were no signs of inflammation or ulceration. Multiple biopsies were taken through the transverse colon, descending colon, sigmoid colon, and rectum and sent for histologic review. The scope was retroflexed within the rectum to allow visualization of the anal canal opening. This appeared normal and a photograph was taken. The scope was then straightened out and fully withdrawn. The cecum to anus time was greater than 6 minutes. The patient tolerated the procedure well and was transferred to the PACU in stable condition. ENDOSCOPIC DIAGNOSES: Esophagitis, chronic constipation. RECOMMENDATIONS: We will have the patient start on a daily PPI and we will visit with her more in clinic regarding ways to manage her constipation and review her pathology results. MORENA READ /[id number]
== END 2021-02-26 16:50 | disposition home or self-care (01) ==
LOC: MW.SDS 11:09
PROVIDERS: ATTEND Surgery
DX: K59.09 Other constipation (principal); K20.90 Esophagitis, unspecified without bleeding; Z79.899 Other long term (current) drug therapy; Z98.890 Other specified postprocedural states
CPT/HCPCS: 43239; 45380; J2704; J3010; J7120; 00813

== ENCOUNTER 2021-11-04 21:18 | Emergency (ER) | payer BC ==
[2021-11-04] MEDS ORDERED: Lidocaine 1% 5 ML VIAL INJECT ONE (22:04)
[2021-11-04] MEDS ORDERED: Diphtheria,Pertussis(Acell),Tetanus Vaccine 0.5 ML Syringe IM ONE (22:18)
== END 2021-11-04 23:15 | disposition home or self-care (01) ==
LOC: MW.ED 21:18
DX: S61.411A Laceration without foreign body of right hand, initial encounter (principal); Z23 Encounter for immunization; W26.0XXA Contact with knife, initial encounter
CPT/HCPCS: 12001; 73130-26-RT; 73130-RT; 90471; 90715; 99282; 99283-25